=== PATIENT | female | born 1995 | race Caucasian/White ===

== ENCOUNTER 2022-01-31 09:42 | Outpatient (REF) | payer OTHER, SELFPAY ==
--- NOTE | ~2022-01-31 | MR_ITS ---
EXAMINATION: MR BRAIN WITHOUT CONTRAST CLINICAL INFORMATION: Pseudotumor cerebri. Daily headaches. Papilledema. Rule out mass. COMPARISON: None. TECHNIQUE: Multiplanar, multisequence imaging of the brain was performed without contrast. FINDINGS: No diffusion abnormalities are identified to suggest an acute infarct. The ventricles are normal in size. No mass effect or midline shift is seen. No brain parenchymal signal abnormality is noted. No extra-axial fluid collections are seen. The brainstem and cerebellum are normal. The gradient refocused acquisition is normal. The craniovertebral junction, marrow signal, and midline structures are normal. The major intracranial flow voids at the level of the [place] of [place] are preserved. The dural venous sinus flow voids are maintained. The mastoid air cells are well aerated. Mild ethmoid sinus mucosal thickening noted. MR/MR head/brain wo con IMPRESSION: Normal MRI of the brain. No acute process.
== END 2022-01-31 09:43 | disposition home or self-care (01) ==
LOC: HO.MRI 09:42
PROVIDERS: PCP Family Medicine; Visit Provider Psychiatry & Neurology Neurology
DX: G93.2 Benign intracranial hypertension (principal)
CPT/HCPCS: 70551